=== PATIENT | male | born 1990 | race Caucasian/White ===

== ENCOUNTER 2016-09-10 20:23 | Emergency (ER) | payer OTHER ==
[2016-09-10] MEDS ORDERED: TETRACAINE HCL 0.5% OPH SOLN 2 ML OS ONE (21:14)
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
[2016-09-10] MEDS ORDERED: CIPROFLOXACIN HCL 0.3% OPH OINTMENT 3.5 GM OD ONE (22:07)
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
[2016-09-10] MEDS ORDERED: CIPROFLOXACIN HCL 0.3% OPH OINTMENT 3.5 GM ONE (22:59)
[2016-09-10 23:50] VITALS: BP 133/76
== END 2016-09-10 23:32 | disposition home or self-care (01) ==
LOC: ER 20:23
DX: T15.02XA Foreign body in cornea, left eye, initial encounter (principal); X58.XXXA Exposure to other specified factors, initial encounter
CPT/HCPCS: 99283; J3490